=== PATIENT | male | born 1945 | race Caucasian/White ===

== ENCOUNTER → 2016-08-05 | Day surgery (SDC) | payer OTHER ==
[~2016-08-05] VITALS: Ht 180.3 cm; Wt 94.3 kg
[~2016-08-05] MED LIST: ASPI81TA85 PO; KETAMINE HCL 200 MG/20 ML VIAL As Ordered ONE; LIDOCAINE 2% INJ 100 MG/5 ML SDV (FOR ANES.) As Ordered ONE; LIDOCAINE W/EPINEPHRINE 1% 20ML VIAL As Ordered ONE; LR 1,000 ML IV ONE; LR 1,000 ML IV SCH; MIDAZOLAM INJ 2 MG/2 ML VIAL (J2250) As Ordered ONE; ONDANSETRON 4MG/2ML VIAL (J2405) As Ordered ONE; PRAV1TAB39 PO; PROPOFOL 200 MG/20 ML VIAL As Ordered ONE; fentaNYL 100 MCG/2 ML INJECTION (J3010) As Ordered ONE
[2016-08-05 19:30] VITALS: BP 157/78
--- NOTE | 2016-08-05 23:12 | RO ---
DATE OF PROCEDURE: 08/05/2016 PREOPERATIVE DIAGNOSIS: Left shoulder basal cell carcinoma. POSTOPERATIVE DIAGNOSIS: Left shoulder basal cell carcinoma. OPERATIVE PROCEDURE: Excision of left shoulder basal cell carcinoma with undermining of the skin edges. SURGEON: Wily Hernández MD [place]: None. ANESTHESIA: IV sedation with 20 mL of 1% lidocaine with epinephrine local. COMPLICATIONS: None. ESTIMATED BLOOD LOSS: 5 mL INDICATION FOR THE PROCEDURE: The patient is a 71-year-old male had left shoulder biopsy positive for basal cell carcinoma, presents to my office with a large lesion. Recommendation was to proceed with excision in the operating room due to the large size and location. Risks and benefits of the procedure not limited to but including bleeding, infection and need for further surgery are discussed in detail with the patient and informed consent was obtained and the procedure was planned. DESCRIPTION OF PROCEDURE: The patient was brought back to operating room three and placed in the right lateral decubitus position. Next, the left shoulder was sterilely prepped and draped with chlorhexidine. Next, a time-out was done to confirm proper patient and proper procedure. Following that, local was injected into the skin and subcutaneous tissue surrounding the lesion. Next, a 3.5 x 9 cm elliptical incision was created. The entire lesion was excised intact. Following that, the skin edges were undermined for about 3 cm in all directions so to offer wound closure. The wound was then closed with interrupted #3-0 nylon sutures. Once this was completed, the area was cleaned and dried, 4 x 4s and tape were applied, thus ending procedure.
== END | disposition home or self-care (01) ==
LOC: M SDC 13:59
PROVIDERS: ATTEND Surgery
DX: C44.619 Basal cell carcinoma of skin of left upper limb, including shoulder (principal); E78.4 Other hyperlipidemia; Z79.899 Other long term (current) drug therapy; Z79.82 Long term (current) use of aspirin
CPT/HCPCS: 11606; 88305; J0690; J2250; J2405; J3010

== ENCOUNTER 2024-09-11 10:26 | Day surgery (SDC) | payer OTHER ==
[~2024-09-11] VITALS: Ht 177.8 cm; Wt 92.4 kg
[~2024-09-11 10:26] MED LIST changes: -ASPI81TA85 PO; +ASPI81TA86 PO; +CEFUROXIME 1 MG/0.1 ML INTRACAMERAL INJ As Ordered ONE; +CYCLOPENTOLATE 1% OPHTH SOLN 2 ML BTL OD SCH; +ECOT81TA5 PO; +FLURBIPROFEN 0.03% OPHTH SOLN 2.5 ML OD SCH; -KETAMINE HCL 200 MG/20 ML VIAL As Ordered ONE; +LIDOCAINE 1% SDV 5 ML VIAL As Ordered ONE; -LIDOCAINE 2% INJ 100 MG/5 ML SDV (FOR ANES.) As Ordered ONE; -LIDOCAINE W/EPINEPHRINE 1% 20ML VIAL As Ordered ONE; +LOSA50TA28 PO; -LR 1,000 ML IV ONE; -MIDAZOLAM INJ 2 MG/2 ML VIAL (J2250) As Ordered ONE; -ONDANSETRON 4MG/2ML VIAL (J2405) As Ordered ONE; +PHENYLEPHRINE 2.5% OPHTH SOL 2ML OD SCH; +PRAV20TA78 PO; -PROPOFOL 200 MG/20 ML VIAL As Ordered ONE; +TETRACAINE 0.5% OPHTH SOLN 4ML OD SCH; -fentaNYL 100 MCG/2 ML INJECTION (J3010) As Ordered ONE
[2024-09-11] MEDS: TETRACAINE 0.5% OPHTH SOLN 4ML OD SCH (11:37)
[2024-09-11] MEDS: FLURBIPROFEN 0.03% OPHTH SOLN 2.5 ML OD SCH (11:37)
[2024-09-11] MEDS: CYCLOPENTOLATE 1% OPHTH SOLN 2 ML BTL OD SCH (11:37)
[2024-09-11] MEDS: PHENYLEPHRINE 2.5% OPHTH SOL 2ML OD SCH (11:37)
[2024-09-11 13:04] VITALS: BP 133/88; TEMP 97; O2SAT 99
== END 2024-09-11 13:21 | disposition home or self-care (01) ==
LOC: M SDC 10:26
PROVIDERS: ATTEND Ophthalmology
DX: H25.11 Age-related nuclear cataract, right eye (principal); I10 Essential (primary) hypertension; C44.619 Basal cell carcinoma of skin of left upper limb, including shoulder; Z79.899 Other long term (current) drug therapy; Z79.82 Long term (current) use of aspirin; Z90.89 Acquired absence of other organs; Z94.6 Bone transplant status
CPT/HCPCS: 66984; J0697; J3010; V2632